=== PATIENT | male | born 1970 | race Caucasian/White ===

== ENCOUNTER 2021-05-14 15:49 | Inpatient (IN) ==
[2021-05-14 16:34] LABS: Basophils # 0.1 K/mcL (0.0-0.2); Basophils % 0.8 %; Eosinophils # 0.7 K/mcL (0.0-0.6); Eosinophils % 8.1 %; Hematocrit 43.7 % (37.5-50.1); Hemoglobin 14.2 g/dL (12.9-16.9); Immature Granulocytes % 0.2 % (0-4); Lymphocytes # 2.9 K/mcL (0.6-4.6); Lymphocytes % 34.8 %; Mean Corpuscular HGB Conc 32.5 g/dL (31.6-35.5); Mean Corpuscular Hemoglobin 30.3 pg (28.0-33.3); Mean Corpuscular Volume 93.4 fL (83.0-100.0); Mean Platelet Volume 8.8 fL (9.4-12.4); Monocytes # 0.6 K/mcL (0.0-1.3); Monocytes % 6.9 %; Neutrophils # 4.1 K/mcL (1.6-8.9); Platelet Count 206 K/mcL (140-400); Red Blood Count 4.68 M/mcL (4.19-5.50); Red Cell Distribution Width 12.9 % (11.5-14.5); Segmented Neutrophils % 49.2 %; White Blood Count 8.3 K/mcL (4.3-11.1)
[2021-05-14 16:49] LABS: Estimated Average Glucose 105 mg/dl; Hemoglobin A1C 5.3 %
[2021-05-14 16:53] LABS: Acetaminophen < 10 mcg/mL (10-20); BUN/Creatinine Ratio 16 (6-26); Blood Urea Nitrogen 19 mg/dL (6-20); Calcium 9.4 mg/dL (8.6-10.3); Carbon Dioxide 26 mEq/L (23-29); Chloride 105 mEq/L (98-107); Cholesterol 248 mg/dL (< 200); Ethanol < 10 mg/dL (Less than 10); Glucose 83 mg/dL (70-105); HDL Cholesterol 62 mg/dL (40-59); LDL Cholesterol,Calculated 163 mg/dL (< 100); Osmolality,Calculated 291 (280-300); Potassium 3.7 mEq/L (3.5-5.1); Salicylate < 2.5 mg/dL (15.0-30.0); Sodium 140 mEq/L (136-145); Triglycerides 115 mg/dL (< 150); eGFR For African Americans > 60 (> 60); eGFR For Non-African Americans > 60 (> 60)
[2021-05-14 17:30] LABS: Bacteria,Urine Few per hpf (None-Few); Bilirubin,Urine Negative (Negative); Blood,Urine Negative (Negative); Clarity,Urine Clear (Clear); Color,Urine Yellow (Yellow); Glucose,Urine (UA) Normal (Normal); Ketones,Urine 10 mg/dL (Negative); Leukocyte Esterase,Urine Negative (Negative); Mucus,Urine Few per lpf (None-Few); Nitrite,Urine Negative (Negative); Protein,Urine 30 mg/dL (Neg-Trace); Specific Gravity,Urine > 1.030 (1.010-1.025); WBC,Urine 0-3 per hpf (0-3)
[2021-05-14 17:34] LABS: Amphetamine Screen,Urine Negative ng/mL (Cutoff=1000); Barbiturate Screen,Urine Negative ng/mL (Cutoff=200); Benzodiazepines Screen,Urine Negative ng/mL (Cutoff=200); Cannabinoid Screen,Urine Negative ng/mL (Cutoff = 50); Cocaine Screen,Urine Negative ng/mL (Cutoff= 300); Opiate Screen,Urine Negative ng/mL (Cutoff=300); Phencyclidine Screen,Urine Negative ng/mL (Cutoff=25)
[2021-05-14] MEDS ORDERED: MOM Conc 10 ML UD.LIQ PO PRN (18:32)
[2021-05-14] MEDS ORDERED: Ibuprofen 400 MG TABLET PO PRN (18:32)
[2021-05-14] MEDS ORDERED: haloperidoL 5 MG TABLET PO PRN (18:32)
[2021-05-14] MEDS ORDERED: Mag Hydrox/Al Hydrox/Simeth 30 ML UDC PO PRN (18:32)
[2021-05-14] MEDS ORDERED: *HR* LORazepam 1 MG TABLET PO PRN (18:32)
[2021-05-14] MEDS ORDERED: Haloperidol Lactate 5 MG/ML VIAL IM PRN (18:32)
[2021-05-14] MEDS ORDERED: *HR* LORazepam 2 MG/ML VIAL IM PRN (18:32)
[2021-05-14] MEDS ORDERED: QUEtiapine Fumarate 25 MG TABLET PO PRN (18:32)
[2021-05-14] MEDS ORDERED: Acetaminophen 325 MG TABLET PO PRN (18:32)
[2021-05-14] MEDS: QUEtiapine Fumarate 100 MG TABLET PO SCH (20:59)
[2021-05-14] MEDS ORDERED: Divalproex (24 HR) 250 MG TABLET PO SCH (21:00)
[2021-05-14] MEDS: hydrOXYzine pamoate 25 MG CAPSULE PO PRN (21:08)
[2021-05-15] MEDS: QUEtiapine Fumarate 100 MG TABLET PO SCH (21:29)
[2021-05-15] MEDS: Divalproex (24 HR) 500 MG TABLET PO SCH (21:29)
[2021-05-16 09:21] LABS: BUN/Creatinine Ratio 13 (6-26); Blood Urea Nitrogen 17 mg/dL (6-20); Calcium 9.7 mg/dL (8.6-10.3); Carbon Dioxide 24 mEq/L (23-29); Chloride 105 mEq/L (98-107); Glucose 127 mg/dL (70-105); Osmolality,Calculated 293 (280-300); Potassium 3.9 mEq/L (3.5-5.1); Sodium 140 mEq/L (136-145); eGFR For African Americans > 60 (> 60); eGFR For Non-African Americans 58 (> 60)
[2021-05-16 09:34] LABS: Thyroid Stimulating Hormone 2.394 mcIU/mL (0.340-5.600)
[2021-05-16 09:45] LABS: Folate 13.2 ng/mL (3.0-16.0)
[2021-05-16] MEDS ORDERED: Cyanocobalamin (B-12) 1,000 MCG/ML VIAL IM ONE (11:44)
[2021-05-16] MEDS: QUEtiapine Fumarate 100 MG TABLET PO SCH (20:29)
[2021-05-16] MEDS: hydrOXYzine pamoate 25 MG CAPSULE PO PRN (20:29)
[2021-05-16] MEDS: Divalproex (24 HR) 500 MG TABLET PO SCH (20:29)
[2021-05-17] MEDS: QUEtiapine Fumarate 100 MG TABLET PO SCH (21:34)
[2021-05-17] MEDS: Divalproex (24 HR) 500 MG TABLET PO SCH (21:34)
[2021-05-18 08:41] LABS: Chol/HDL Ratio 4.1 (0-4.9)
[2021-05-18 09:24] VITALS: BP 135/84
== END 2021-05-18 16:50 | disposition home or self-care (01) | DRG 750 ==
LOC: EMEROOARM 15:49 → 1ANU 18:23
PROVIDERS: ADMIT Psychiatry & Neurology Forensic Psychiatry; ATTEND Psychiatry & Neurology Forensic Psychiatry